=== PATIENT | male | born 1975 | race Caucasian/White ===

== ENCOUNTER 2020-06-04 11:05 | Outpatient (CLI) | payer MEDICARE, SELFPAY ==
[2020-06-04 12:01] LABS: Alanine Aminotransferase 33 U/L (4-50); Albumin Level 4.7 g/dL (3.5-5.1); Alkaline Phosphatase 62 U/L (38-126); Anion Gap 10 mmol/L (8-16); Aspartate Amino Transferase 30 U/L (17-59); Bilirubin,Total 1.2 mg/dL (0.2-1.3); Blood Urea Nitrogen 17 mg/dL (9-20); Calcium 9.9 mg/dL (8.4-10.2); Carbon Dioxide 25 mmol/L (22-30); Chloride 106 mmol/L (98-107); Estimated Glomerular Filt Rate > 60; Glucose 92 mg/dL (75-110); Potassium 4.5 mmol/L (3.4-5.0); Sodium 141 mmol/L (137-145)
[2020-06-04 12:15] LABS: Hemoglobin A1C 5.5 % (<5.7)
== END 2020-06-04 11:06 | disposition home or self-care (01) ==
PROVIDERS: PCP Emergency Medicine; Visit Provider Emergency Medicine
DX: E78.5 Hyperlipidemia, unspecified (principal); E11.9 Type 2 diabetes mellitus without complications
CPT/HCPCS: 36415; 80053; 83036

== ENCOUNTER 2021-01-07 07:51 | Outpatient (CLI) | payer MEDICARE, SELFPAY ==
[2021-01-07 08:41] LABS: Basophils Percent Auto 0.7 % (0.2-1.2); Eosinophils Absolute Auto 0.4 K/mm3 (0-0.3); Eosinophils Percent Auto 5.9 % (0-4.4); Hematocrit 49.6 % (42.0-52.0); Hemoglobin 14.9 g/dL (14.0-18.0); Immature Granulocyte Absolute 0.01 K/mm3 (0.00-0.031); Immature Granulocyte Percent A 0.2 % (0-0.5); Lymphocytes Absolute Auto 2.69 K/mm3 (0.9-3.2); Lymphocytes Percent Auto 45.4 % (18.3-44.2); Mean Corpuscular Hemoglobin 18.1 pg (26-34); Mean Corpuscular Volume 60.2 fl (80-100); Mean Platelet Volume 9.6 fl (7.4-10.4); Monocytes Absolute Auto 0.6 K/mm3 (0.1-0.6); Monocytes Percent Auto 9.8 % (2.6-8.5); Neutrophils Absolute Auto 2.3 K/mm3 (1.3-6.7); Platelet Count Result 273 k/mm3 (150-375); Red Blood Count 8.24 M/mm3 (4.6-6.20); Red Cell Distribution Width 19.4 % (11.5-14.5); White Blood Count 5.9 K/mm3 (4.5-10.0)
== END 2021-01-07 07:52 | disposition home or self-care (01) ==
PROVIDERS: PCP Emergency Medicine; Visit Provider Emergency Medicine
DX: R53.83 Other fatigue (principal)
CPT/HCPCS: 36415; 84443; 85025

== ENCOUNTER 2021-04-06 07:01 | Outpatient (CLI) | payer MEDICARE, SELFPAY ==
[2021-04-06 07:59] LABS: Alanine Aminotransferase 37 U/L (4-50); Albumin Level 4.6 g/dL (3.5-5.1); Alkaline Phosphatase 64 U/L (38-126); Anion Gap 8 mmol/L (8-16); Aspartate Amino Transferase 35 U/L (17-59); Bilirubin,Total 1.4 mg/dL (0.2-1.3); Blood Urea Nitrogen 14 mg/dL (9-20); Calcium 9.8 mg/dL (8.4-10.2); Carbon Dioxide 27 mmol/L (22-30); Chloride 104 mmol/L (98-107); Cholesterol 238 mg/dL (0-200); Estimated Glomerular Filt Rate > 60; Glucose 94 mg/dL (75-110); HDL Direct 66 mg/dL; Potassium 4.2 mmol/L (3.4-5.0); Sodium 139 mmol/L (137-145); Triglycerides 77 mg/dL (<150)
[2021-04-06 08:09] LABS: LDL Cholesterol Direct 127 mg/dL
== END 2021-04-06 07:02 | disposition home or self-care (01) ==
PROVIDERS: PCP Emergency Medicine; Visit Provider Emergency Medicine
DX: E78.5 Hyperlipidemia, unspecified (principal)
CPT/HCPCS: 36415; 80053; 80061

== ENCOUNTER 2021-08-24 15:56 | Outpatient (CLI) | payer MEDICARE, SELFPAY ==
[2021-08-24 17:08] LABS: Basophils Absolute Auto 0.1 K/mm3 (0.0-0.1); Basophils Percent Auto 0.7 % (0.2-1.2); Eosinophils Absolute Auto 0.2 K/mm3 (0-0.3); Eosinophils Percent Auto 2.9 % (0-4.4); Hematocrit 48.9 % (42.0-52.0); Hemoglobin 15.3 g/dL (14.0-18.0); Immature Granulocyte Absolute 0.01 K/mm3 (0.00-0.031); Immature Granulocyte Percent A 0.1 % (0-0.5); Lymphocytes Absolute Auto 2.59 K/mm3 (0.9-3.2); Lymphocytes Percent Auto 35.4 % (18.3-44.2); Mean Corpuscular HGB Conc 31.3 g/dl (32-36); Mean Corpuscular Hemoglobin 18.8 pg (26-34); Mean Corpuscular Volume 60.1 fl (80-100); Mean Platelet Volume 9.8 fl (7.4-10.4); Monocytes Absolute Auto 0.4 K/mm3 (0.1-0.6); Monocytes Percent Auto 5.9 % (2.6-8.5); Platelet Count Result 275 k/mm3 (150-375); Red Blood Count 8.13 M/mm3 (4.6-6.20); White Blood Count 7.3 K/mm3 (4.5-10.0)
[2021-08-24 17:14] LABS: Alanine Aminotransferase 28 U/L (4-50); Alkaline Phosphatase 78 U/L (38-126); Anion Gap 11 mmol/L (8-16); Aspartate Amino Transferase 26 U/L (17-59); Bilirubin,Total 1.2 mg/dL (0.2-1.3); Blood Urea Nitrogen 19 mg/dL (9-20); Calcium 10.1 mg/dL (8.4-10.2); Carbon Dioxide 23 mmol/L (22-30); Chloride 107 mmol/L (98-107); Estimated Glomerular Filt Rate > 60; Glucose 97 mg/dL (65-110); Potassium 4.1 mmol/L (3.4-5.0); Sodium 141 mmol/L (137-145)
== END 2021-08-24 15:57 | disposition home or self-care (01) ==
LOC: ANHLAB 15:58
PROVIDERS: PCP Emergency Medicine; Visit Provider Emergency Medicine
DX: R53.83 Other fatigue (principal); Z13.220 Encounter for screening for lipoid disorders
CPT/HCPCS: 36415; 80053; 83735; 84443; 85025

== ENCOUNTER 2021-08-26 11:20 | Outpatient (CLI) | payer MEDICARE, SELFPAY ==
[2021-08-26 12:24] LABS: Iron 196 ug/dL (49-181)
[2021-08-26 12:34] LABS: Percent Iron Saturation 51 % (20-50)
[2021-08-30 12:53] LABS: Red Blood Cell Folate 608 ng/mL RBC (>280)
== END 2021-08-26 11:21 | disposition home or self-care (01) ==
PROVIDERS: PCP Emergency Medicine; Visit Provider Emergency Medicine
DX: R42 Dizziness and giddiness (principal); R53.83 Other fatigue; Z13.220 Encounter for screening for lipoid disorders; Z13.6 Encounter for screening for cardiovascular disorders; R56.9 Unspecified convulsions; R03.0 Elevated blood-pressure reading, without diagnosis of hypertension; Z86.2 Personal history of diseases of the blood and blood-forming organs and certain disorders involving the immune mechanism
CPT/HCPCS: 36415; 82607; 82747; 83540; 83550

== ENCOUNTER 2021-12-26 07:17 | Outpatient (CLI) | payer MEDICARE, SELFPAY ==
[2021-12-26 08:05] LABS: Alanine Aminotransferase 33 U/L (4-50); Albumin Level 4.5 g/dL (3.5-5.1); Alkaline Phosphatase 63 U/L (38-126); Anion Gap 7 mmol/L (8-16); Aspartate Amino Transferase 35 U/L (17-59); Bilirubin,Total 1.2 mg/dL (0.2-1.3); Blood Urea Nitrogen 13 mg/dL (9-20); Calcium 9.2 mg/dL (8.4-10.2); Carbon Dioxide 27 mmol/L (22-30); Chloride 104 mmol/L (98-107); Cholesterol 212 mg/dL (0-200); Estimated Glomerular Filt Rate > 60; Glucose 96 mg/dL (65-110); HDL Direct 52 mg/dL; Potassium 4.1 mmol/L (3.4-5.0); Sodium 138 mmol/L (137-145); Triglycerides 98 mg/dL (<150)
[2021-12-26 08:16] LABS: LDL Cholesterol Direct 127 mg/dL
== END 2021-12-26 07:18 | disposition home or self-care (01) ==
PROVIDERS: PCP Emergency Medicine; Visit Provider Emergency Medicine
DX: Z13.220 Encounter for screening for lipoid disorders (principal); Z13.6 Encounter for screening for cardiovascular disorders
CPT/HCPCS: 36415; 80053; 80061

== ENCOUNTER 2022-01-04 15:55 | Outpatient (CLI) | payer MEDICARE, SELFPAY ==
[2022-01-04 16:20] LABS: Basophils Absolute Auto 0.1 K/mm3 (0.0-0.1); Basophils Percent Auto 0.8 % (0.2-1.2); Eosinophils Absolute Auto 0.4 K/mm3 (0-0.3); Eosinophils Percent Auto 4.5 % (0-4.4); Hemoglobin 15.1 g/dL (14.0-18.0); Immature Granulocyte Absolute 0.02 K/mm3 (0.00-0.031); Immature Granulocyte Percent A 0.2 % (0-0.5); Lymphocytes Absolute Auto 3.11 K/mm3 (0.9-3.2); Lymphocytes Percent Auto 35.8 % (18.3-44.2); Mean Corpuscular HGB Conc 30.2 g/dl (32-36); Mean Corpuscular Hemoglobin 18.7 pg (26-34); Mean Platelet Volume 9.2 fl (7.4-10.4); Monocytes Absolute Auto 0.6 K/mm3 (0.1-0.6); Monocytes Percent Auto 6.6 % (2.6-8.5); Neutrophils Absolute Auto 4.5 K/mm3 (1.3-6.7); Neutrophils Percent Auto 52.1 % (45.5-73.1); Platelet Count Result 283 k/mm3 (150-375); Red Blood Count 8.07 M/mm3 (4.6-6.20); Red Cell Distribution Width 20.2 % (11.5-14.5); White Blood Count 8.7 K/mm3 (4.5-10.0)
--- NOTE | 2022-01-04 16:20 | ECG_ITS ---
Measurements Intervals [place] Rate: 104 P: 38 WA: 154 QRS: 35 QRSD: 85 T: 23 QT: 327 QTc: 431 Interpretive Statements SINUS TACHYCARDIA BORDERLINE ECG NO PREVIOUS ECG AVAILABLE FOR COMPARISON Electronically Signed On 01-05-2022 15:30:19 CDT by Refugio Castro M.D.
== END 2022-01-04 15:56 | disposition home or self-care (01) ==
PROVIDERS: PCP Emergency Medicine; Visit Provider Emergency Medicine
DX: R00.0 Tachycardia, unspecified (principal); R53.83 Other fatigue; Z86.2 Personal history of diseases of the blood and blood-forming organs and certain disorders involving the immune mechanism
CPT/HCPCS: 36415; 84443; 85025; 93005

== ENCOUNTER 2022-01-06 14:25 | Outpatient (CLI) | payer MEDICARE, SELFPAY ==
[2022-01-06 15:18] LABS: Iron 136 ug/dL (49-181)
[2022-01-06 15:28] LABS: Percent Iron Saturation 34 % (20-50)
== END 2022-01-06 14:26 | disposition home or self-care (01) ==
LOC: ANHLAB 14:29
PROVIDERS: PCP Emergency Medicine; Visit Provider Emergency Medicine
DX: R53.83 Other fatigue (principal); Z86.2 Personal history of diseases of the blood and blood-forming organs and certain disorders involving the immune mechanism
CPT/HCPCS: 36415; 83540; 83550

== ENCOUNTER 2022-03-09 12:28 | Emergency (ER) | payer MEDICARE, SELFPAY ==
[2022-03-09] VITALS (12 sets, daily range): BP systolic 143–162; BP diastolic 98–110; PULSE 92–114; RESP 16–24; TEMP 36.3; O2SAT 92–97
--- NOTE | ~2022-03-09 | XR_ITS ---
EXAMINATION: XR chest 2V 03/09/2022 12:57 INDICATION: Chest pain PROCEDURE: 2 view chest COMPARISON: 11/19/2017 FINDINGS: The lungs are clear. The cardiomediastinal silhouette is within normal limits. There are no pleural effusions. There is no pneumothorax suspected. IMPRESSION: 1: NO ACUTE CARDIOPULMONARY DISEASE. Reviewed, dictated and finalized at location A.
--- NOTE | 2022-03-09 12:29 | ECG_ITS ---
Measurements Intervals [place] Rate: 114 P: 29 NC: 154 QRS: 37 QRSD: 81 T: 33 QT: 314 QTc: 434 Interpretive Statements SINUS TACHYCARDIA NONSPECIFIC T-WAVE ABNORMALITY BORDERLINE ECG COMPARED TO ECG 01/04/2022 16:29:20 T-WAVE ABNORMALITY NOW PRESENT Electronically Signed On 03-09-2022 17:54:05 CDT by Refugio Castro M.D.
[2022-03-09 13:09] LABS: Basophils Percent Auto 0.5 % (0.2-1.2); Eosinophils Percent Auto 0.2 % (0-4.4); Hematocrit 49.5 % (42.0-52.0); Hemoglobin 15.1 g/dL (14.0-18.0); Immature Granulocyte Absolute 0.03 K/mm3 (0.00-0.031); Immature Granulocyte Percent A 0.3 % (0-0.5); Lymphocytes Absolute Auto 1.74 K/mm3 (0.9-3.2); Mean Corpuscular HGB Conc 30.5 g/dl (32-36); Mean Corpuscular Hemoglobin 18.7 pg (26-34); Mean Corpuscular Volume 61.3 fl (80-100); Mean Platelet Volume 9.5 fl (7.4-10.4); Monocytes Absolute Auto 0.4 K/mm3 (0.1-0.6); Monocytes Percent Auto 4.1 % (2.6-8.5); Neutrophils Absolute Auto 6.5 K/mm3 (1.3-6.7); Neutrophils Percent Auto 74.9 % (45.5-73.1); Platelet Count Result 287 k/mm3 (150-375); Red Blood Count 8.08 M/mm3 (4.6-6.20); Red Cell Distribution Width 20.5 % (11.5-14.5); White Blood Count 8.7 K/mm3 (4.5-10.0)
--- NOTE | 2022-03-09 13:10 | PC.NURSE ---
called into patient's room by mother stating that patient was feeling sick and dizzy. upon entering room, patient was feeling better. cool wash cloth placed on forehead. patient reported that he started to feel sick yesterday but did not vomit. assessed patient's vital signs and call light within reach. will continue to monitor
[2022-03-09 13:24] LABS: Alanine Aminotransferase 56 U/L (6-50); Albumin Level 5.2 g/dL (3.5-5.1); Alkaline Phosphatase 79 U/L (38-126); Anion Gap 10 mmol/L (8-16); Aspartate Amino Transferase 45 U/L (17-59); Bilirubin,Total 1.6 mg/dL (0.2-1.3); Blood Urea Nitrogen 15 mg/dL (9-20); Calcium 9.6 mg/dL (8.4-10.2); Carbon Dioxide 22 mmol/L (22-30); Chloride 108 mmol/L (98-107); Estimated CRCL calculation 87 ml/min; Estimated Glomerular Filt Rate > 60; Glucose 102 mg/dL (65-110); INR 1.1; Lipase 162 U/L (23-300); Partial Thromboplastin Time 31.7 SECONDS (22.3-36.8); Potassium 4.3 mmol/L (3.4-5.0); Prothrombin Time 13.4 Seconds (11.1-14.7); Sodium 140 mmol/L (137-145)
[2022-03-09 13:35] LABS: Troponin I < 0.012 ng/mL (0.000-0.034)
--- NOTE | 2022-03-09 14:05 | ED.CHESTPAIN ---
HPI - Chest Pain General Chief Complaint: Chest Pain Stated Complaint: CHEST PAIN Time Seen by Provider: 03/09/22 13:55 History of Present Illness HPI narrative: Pt was waiting do go to work and felt lightheaded and apparently passed out. Pt said he had some CP not sure if before or after that lasted around an hour. Pt says this happened around 1100. Pt rode his bike home afterward and had no symptoms and then went shopping with his friends and had no symptoms. Related Data Home Medications Medication Instructions Recorded Confirmed ibuprofen 800 mg tablet 800 mg PO TID 06/02/20 09/15/21 loratadine 10 mg tablet (Claritin) 10 mg PO DAILY 03/09/22 Allergies Allergy/AdvReac Type Severity Reaction Status Date / Time No Known Allergies Allergy Verified 03/09/22 12:50 Review of Systems Review of Systems: All systems reviewed & are unremarkable except as noted in HPI and below PMFSH Past Medical History Medical History (Updated 03/09/22 @ 16:42 by Danie Poole III, DO) Pre-syncope Family History Family History Other Family history of arthritis Social History Social History Smoking status: Never smoker Alcohol intake: never Exam Const: General: healthy appearing, no acute distress and alert Eyes: Conjunctivae: conjunctivae normal EOM: EOMs intact bilaterally Neck: Neck: normal visual inspection Chest: Chest palpation & inspection: normal inspection of the chest Resp: Effort & Inspection: normal respiratory effort Auscultation: clear to auscultation bilaterally Cardio: Rate: regular rate Rhythm: regular rhythm : General: Yes bladder normal to palpation Back/Spine/Pelvis: Back: no CVA tenderness Skin: General skin exam: normal color Neuro: General: patient oriented x3, moves all extremities, no meningeal signs and no focal motor deficits Cranial nerves: Yes Nystagmus not present Speech: normal speech Gait exam (Neuro): Normal gait present Extrem: General: normal to inspection and no clubbing, cyanosis or edema Psych: Mental Status: mental status grossly normal Affect: normal affect Attitude: cooperative Course Vital Signs Vital signs: Vital Signs Pulse Rate 114 H 03/09/22 12:34 Respiratory Rate 20 03/09/22 12:34 Oxygen Delivery Room Air 03/09/22 12:34 Temperature 97.3 F L 03/09/22 16:47 Pulse Rate 92 03/09/22 16:47 Respiratory Rate 16 03/09/22 16:47 Blood Pressure 145/98 H 03/09/22 16:47 Pulse Oximetry 97 03/09/22 16:47 Oxygen Delivery Room Air 03/09/22 12:34 MDM - Chest Pain Lab Data Result diagrams: 03/09/22 12:52 03/09/22 12:52 Labs: Lab Results 03/09/22 03/09/22 03/09/22 Range/Units 12:52 12:52 12:52 WBC 8.7 (4.5-10.0) K/mm3 RBC 8.08 H (4.6-6.20) M/mm3 Hgb 15.1 (14.0-18.0) g/dL Hct 49.5 (42.0-52.0) % MCV 61.3 L (80-100) fl MCH 18.7 L (26-34) pg MCHC 30.5 L (32-36) g/dl RDW 20.5 H (11.5-14.5) % Plt Count 287 (150-375) k/mm3 MPV 9.5 (7.4-10.4) fl Immature Gran % (Auto) 0.3 (0-0.5) % Neut % (Auto) 74.9 H (45.5-73.1) % Lymph % (Auto) 20.0 (18.3-44.2) % [place] % (Auto) 4.1 (2.6-8.5) % Eos % (Auto) 0.2 (0-4.4) % Baso % (Auto) 0.5 (0.2-1.2) % Lymph # (Auto) 1.74 (0.9-3.2) K/mm3 [place] # (Auto) 0.4 (0.1-0.6) K/mm3 Eos # (Auto) 0.0 (0-0.3) K/mm3 Baso # (Auto) 0.0 (0.0-0.1) K/mm3 Abs Immat Gran (auto) 0.03 (0.00-0.031) K/mm3 Absolute Neuts (auto) 6.5 (1.3-6.7) K/mm3 Absolute Nucleated RBC 0.0 (0.0-0.012) K/mm3 Nucleated RBC % 0.0 (0.0-0.2) % PT 13.4 (11.1-14.7) Seconds INR 1.1 APTT 31.7 (22.3-36.8) SECONDS Sodium 140 (137-145) mmol/L Potassium 4.3 (3.4-5.0) mmol/L Chloride 108 H (98-107) mmol/L Carbon Dioxide 22 (22-30) mmol/L
[2022-03-09 15:59] LABS: Troponin I < 0.012 ng/mL (0.000-0.034)
== END 2022-03-09 16:49 | disposition home or self-care (01) ==
PROVIDERS: Emergency Provider Emergency Medicine; PCP Emergency Medicine
DX: R55 Syncope and collapse (principal); R07.89 Other chest pain; R00.0 Tachycardia, unspecified; R94.31 Abnormal electrocardiogram [ECG] [EKG]
CPT/HCPCS: 36415; 71046; 80053; 83690; 84484; 85025; 85610; 85730; 93005; 99284

== ENCOUNTER 2023-07-03 09:21 | Outpatient (CLI) | payer MEDICARE, SELFPAY ==
[2023-07-03 09:55] LABS: Alanine Aminotransferase 66 U/L (6-50); Albumin Level 4.7 g/dL (3.5-5.1); Alkaline Phosphatase 57 U/L (38-126); Anion Gap 11 mmol/L (8-16); Aspartate Amino Transferase 51 U/L (17-59); Bilirubin,Total 1.5 mg/dL (0.2-1.3); Blood Urea Nitrogen 14 mg/dL (9-20); Calcium 9.1 mg/dL (8.4-10.2); Carbon Dioxide 22 mmol/L (22-30); Chloride 105 mmol/L (98-107); Estimated Glomerular Filt Rate > 60; Glucose 83 mg/dL (65-110); Potassium 4.1 mmol/L (3.4-5.0); Sodium 138 mmol/L (137-145)
== END 2023-07-03 09:22 | disposition home or self-care (01) ==
PROVIDERS: PCP Emergency Medicine; Visit Provider Emergency Medicine
DX: R53.83 Other fatigue (principal); E78.5 Hyperlipidemia, unspecified
CPT/HCPCS: 36415; 80053

== ENCOUNTER 2023-07-13 10:37 | Outpatient (CLI) | payer MEDICARE, SELFPAY ==
--- NOTE | 2023-07-13 10:44 | ECG_ITS ---
Measurements Intervals [place] Rate: 94 P: 28 MS: 153 QRS: 28 QRSD: 91 T: 29 QT: 332 QTc: 417 Interpretive Statements SINUS RHYTHM COMPARED TO ECG 03/09/2022 12:33:53 SINUS RHYTHM NOW PRESENT Electronically Signed On 07-13-2023 14:29:56 CDT by Angeles Smart M.D.
== END 2023-07-13 10:38 | disposition home or self-care (01) ==
LOC: ANHLAB 10:39 → ANHCARD 10:39
PROVIDERS: PCP Emergency Medicine; Visit Provider Emergency Medicine
DX: R06.09 Other forms of dyspnea (principal); R07.89 Other chest pain
CPT/HCPCS: 93005

== ENCOUNTER 2023-08-15 08:00 | Outpatient (CLI) | payer MEDICARE, SELFPAY ==
--- NOTE | ~2023-08-15 | NM_ITS ---
EXAMINATION: NM maxime stress w perfusion DATE: 08/15/2023 11:40 INDICATION: Other forms of dyspnea TECHNIQUE: Rest images were obtained following intravenous administration of 10.9 mCi Tc99m tetrofosm in (Myoview). The patient was infused intravenously with Lexiscan (Regadenoson). Then, 32 mCi Tc99m t etrofosmin (Myoview) was administered intravenously, and stress images were obtained. Data was recons tructed into short axis and horizontal and vertical long axis SPECT images. Gated SPECT images were a lso obtained. COMPARISON: None. FINDINGS: There is no definite reversible or fixed perfusion abnormality to suggest ischemia or infar ction. There is normal left ventricular chamber size, wall motion and ejection fraction. Left ventr icular ejection fraction measures >70%. IMPRESSION: 1. Normal myocardial perfusion at rest and during stress. 2. Left ventricular ejection fraction measuring >70%. Reviewed, dictated and finalized at location A. ECT PLANNER
--- NOTE | 2023-08-15 08:47 | EST_ITS ---
Patient Info Name: Brendan Saenz Age: 47 years : 1975 Gender: Male Ht: 71 in Wt: 220 lbs BSA: 2.26 m2 HR: 81 bpm BP: 113 / 89 mmHg Heart Rhythm: Sinus Rhythm Exam Date: 08/15/2023 10:40 AM Exam Location: Echo Lab Patient Status: Outpatient Admit Date: 08/15/2023 Staff Ordering Physician: Salinas Jackson MD Attending Provider: Salinas Jackson MD Exercise Technologist: Abbie Gabriel CT Exercise Physician: Jeff Randall DO Exam Type: CA stress maxime w NM Study Info Indications R06.09 - Other forms of dyspnea A regadenoson stress test was performed. Summary 1. 1. Negative lexiscan stress test for ischemic ST changes by ECG criteria. 2. 2. Stable hemodynamics throughout the test. 3. 3. Nuclear scan to follow and will be reported separately. Please correlate with it. 4. 4. Patient informed of the above results. Protocol: Lexiscan Stress ECG Details Stage: REST Duration (min): 1 min : 23 sec HR (bpm): 90 SBP (mmHg): 113 DBP (mmHg): 89 Stage: REST Duration (min): 9 min : 42 sec HR (bpm): 82 SBP (mmHg): 113 DBP (mmHg): 89 Stage: STAGE 1 Duration (min): 1 min : 0 sec HR (bpm): 108 SBP (mmHg): 115 DBP (mmHg): 91 Stage: RECOVERY Duration (min): 1 min : 0 sec HR (bpm): 118 SBP (mmHg): 115 DBP (mmHg): 91 Stage: RECOVERY Duration (min): 2 min : 0 sec HR (bpm): 115 SBP (mmHg): 115 DBP (mmHg): 91 Stage: RECOVERY Duration (min): 3 min : 0 sec HR (bpm): 112 SBP (mmHg): 136 DBP (mmHg): 97 Stage: RECOVERY Duration (min): 3 min : 0 sec HR (bpm): 112 SBP (mmHg): 136 DBP (mmHg): 97 Rest HR: 82 bpm Peak HR: 120 bpm Rest Sys BP: 113 mmHg Peak Sys BP: 136 mmHg Max Pred HR: 174 bpm % Max Pred HR: 69 % Target HR: 148 bpm Max RPP: 16,320 bpm*mmHg Termination Reason: Completed protocol Cardiac Symptoms: Shortness of breath Total Time: 1 min : 0 sec Rest Laurent BP: 89 mmHg Peak Laurent BP: 97 mmHg Total Dose: 0.4 mg Resting ECG Sinus rhythm. Stress ECG No ST changes. Arrhythmias None. Report Signatures
== END 2023-08-15 08:01 | disposition home or self-care (01) ==
LOC: ANHCARD 08:02
PROVIDERS: PCP Emergency Medicine; Visit Provider Emergency Medicine
DX: R06.09 Other forms of dyspnea (principal)
CPT/HCPCS: 78452; 93017; A9502; J2785

== ENCOUNTER 2023-11-07 07:28 | Outpatient (CLI) | payer MEDICARE, SELFPAY ==
[2023-11-07 08:37] LABS: Alanine Aminotransferase 66 U/L (6-50); Albumin Level 4.4 g/dL (3.5-5.1); Alkaline Phosphatase 69 U/L (38-126); Anion Gap 11 mmol/L (8-16); Aspartate Amino Transferase 43 U/L (17-59); Bilirubin,Total 1.4 mg/dL (0.2-1.3); Blood Urea Nitrogen 14 mg/dL (9-20); Calcium 9.9 mg/dL (8.4-10.2); Carbon Dioxide 23 mmol/L (22-30); Chloride 107 mmol/L (98-107); Estimated Glomerular Filt Rate > 60; Glucose 94 mg/dL (65-110); Potassium 4.1 mmol/L (3.4-5.0); Sodium 141 mmol/L (137-145)
== END 2023-11-07 07:29 | disposition home or self-care (01) ==
PROVIDERS: PCP Emergency Medicine; Visit Provider Emergency Medicine
DX: E55.9 Vitamin D deficiency, unspecified (principal); R53.83 Other fatigue
CPT/HCPCS: 36415; 80053; 82306

== ENCOUNTER 2023-11-27 09:56 | Outpatient (CLI) | payer MEDICARE, SELFPAY ==
--- NOTE | ~2023-11-27 | US_ITS ---
Limited Abdominal Sonogram: Real-time sonographic imaging of the right upper quadrant was performed. Clinical History: Abdominal pain Findings: The liver appears echogenic, with no evidence of mass lesion or bile duct dilatation. Main portal vein demonstrates normal direction of flow. The gallbladder is well distended, and contains g allstones in the gallbladder neck. No gallbladder wall thickening. The common bile duct measures 4 mm . The visualized pancreas, aorta, and IVC are unremarkable. Impression: Cholelithiasis. Diffuse fatty infiltration of liver. Reviewed, dictated and finalized at location M. NAVIGATOR Impression: Cholelithiasis. Diffuse fatty infiltration of liver.
== END 2023-11-27 09:57 | disposition home or self-care (01) ==
PROVIDERS: PCP Emergency Medicine; Visit Provider Emergency Medicine
DX: K80.20 Calculus of gallbladder without cholecystitis without obstruction (principal); K76.0 Fatty (change of) liver, not elsewhere classified
CPT/HCPCS: 76705

== ENCOUNTER 2024-03-12 08:45 | Outpatient (CLI) | payer MEDICARE, SELFPAY ==
[2024-03-12 10:30] LABS: Alanine Aminotransferase 57 U/L (6-50); Albumin Level 5.3 g/dL (3.5-5.1); Alkaline Phosphatase 74 U/L (38-126); Anion Gap 13 mmol/L (4-12); Aspartate Amino Transferase 40 U/L (17-59); Bilirubin,Total 1.4 mg/dL (0.2-1.3); Blood Urea Nitrogen 15 mg/dL (9-20); Carbon Dioxide 23 mmol/L (22-30); Chloride 105 mmol/L (98-107); Cholesterol 237 mg/dL (0-200); Estimated Glomerular Filt Rate > 60; Glucose 86 mg/dL (65-110); HDL Direct 52 mg/dL; Potassium 4.2 mmol/L (3.4-5.0); Sodium 141 mmol/L (137-145); Triglycerides 141 mg/dL (<150)
[2024-03-12 10:41] LABS: LDL Cholesterol Direct 150 mg/dL
[2024-03-12 10:50] LABS: Vitamin D 25 Hydroxy 45.1 ng/mL
== END 2024-03-12 08:46 | disposition home or self-care (01) ==
PROVIDERS: PCP Emergency Medicine; Visit Provider Emergency Medicine
DX: E78.5 Hyperlipidemia, unspecified (principal); E55.9 Vitamin D deficiency, unspecified
CPT/HCPCS: 36415; 80053; 80061; 82306

== ENCOUNTER 2024-09-10 09:03 | Outpatient (CLI) | payer MEDICARE, SELFPAY ==
[2024-09-10 10:06] LABS: Alanine Aminotransferase 67 U/L (6-50); Albumin Level 4.9 g/dL (3.5-5.1); Alkaline Phosphatase 75 U/L (38-126); Anion Gap 9 mmol/L (4-12); Aspartate Amino Transferase 38 U/L (17-59); Bilirubin,Total 1.5 mg/dL (0.2-1.3); Blood Urea Nitrogen 14 mg/dL (9-20); Calcium 9.6 mg/dL (8.4-10.2); Carbon Dioxide 27 mmol/L (22-30); Chloride 106 mmol/L (98-107); Cholesterol 155 mg/dL (0-200); Estimated Glomerular Filt Rate > 60; Glucose 90 mg/dL (65-110); HDL Direct 50 mg/dL; Potassium 4.1 mmol/L (3.4-5.0); Sodium 142 mmol/L (137-145); Triglycerides 122 mg/dL (<150)
[2024-09-10 10:17] LABS: LDL Cholesterol Direct 80 mg/dL
[2024-09-10 10:37] LABS: Prostate Specific Antigen 0.7 ng/mL (< OR = 4.0)
[2024-09-10 10:43] LABS: Vitamin D 25 Hydroxy 45.4 ng/mL
== END 2024-09-10 09:04 | disposition home or self-care (01) ==
LOC: ANHLAB 09:06
PROVIDERS: PCP Emergency Medicine; Visit Provider Emergency Medicine
DX: E55.9 Vitamin D deficiency, unspecified (principal); E78.5 Hyperlipidemia, unspecified; Z12.5 Encounter for screening for malignant neoplasm of prostate
CPT/HCPCS: 36415; 80053; 80061; 82306; 84153; G0103

== ENCOUNTER 2025-03-09 08:30 | Outpatient (CLI) | payer MEDICARE, SELFPAY ==
--- OUTSIDE RECORDS SUMMARY | 2025-03-09 08:44 | XMS_ITS | Clinical Summary ---
Author Organization [facility] [place] [address] Address [address] [place] [address] Care Team Providers Care Meat Apprentice Name Role Phone Salinas Jackson MD Primary Care Provide r Allergies No known active allergies Medications loratadine-pseu doephedrine (CLARITIN-D 24-hour) 10-240 mg per 24 hr tablet Take 1 tablet by mouth daily Active loratadine (Claritin) 10 mg tablet Take 1 tablet (10 mg total) by mouth daily Active losartan (COZAAR) 50 mg tablet Take 1 tablet (50 mg total) by mouth daily 08/04/2024 Active rosuvastatin (CRESTOR) 10 mg tablet Take 1 tablet (10 mg total) by mouth daily 08/31/2024 Active famotidine (Pepcid) 20 mg tablet Take 1 tablet (20 mg total) by mouth 2 (two) times a day Active acetaminophen (TYLENOL ORAL) Take by mouth Active levETIRAcetam (KEPPRA) 500 mg tabletIndicatio ns:Seizures (HCC) Take 1.5 tablets (750 mg total) by mouth 2 (two) times a day 270 tablet 3 10/22/2024 Active Active Problems Problem Noted Date Diagnosed Date Seizures 12/01/2021 Surgical History Surgery Date Site/Laterality Comments JOSEPHINE HOLE FOR SUBDURAL HEMATOMA FOOT CAPSULE RELEASE W/ PERC UTANEOUS HEEL CORD LENGTHENING, TIBIAL TENDON TRANSFER Medical History Medical History Date Comments TBI (traumatic brain injury) (HCC) Subdural hematoma (HCC) Leg length discrepancy 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 Not on file Not on dago e Obstetrics History Last Filed Vital Signs Vital Sign Reading Time Taken Comments Blood Pressure 118/87 10/22/2024 2:12 PM ENTRY LEVEL MARKETING REPRESENTATIVE Pulse 103 10/22/2024 2:12 PM ENTRY LEVEL MARKETING REPRESENTATIVE Temperature 36.8 C (98.2 F) 10/22/2024 2:12 PM ENTRY LEVEL MARKETING REPRESENTATIVE Respiratory Rate - - Oxygen Saturation 97% 10/22/2024 2:12 PM ENTRY LEVEL MARKETING REPRESENTATIVE Inhaled Oxygen Concentration - - Weight 109.5 kg (241 lb 8 oz) 10/22/2024 2:12 PM ENTRY LEVEL MARKETING REPRESENTATIVE Height 180.3 cm (5' 11) 10/22/2024 2:12 PM ENTRY LEVEL MARKETING REPRESENTATIVE Body Mass Index 33.68 10/22/2024 2:12 PM ENTRY LEVEL MARKETING REPRESENTATIVE Plan of Treatment Health Maintenance Due Date Last Done Comments Colon Cancer Screening-Colonoscopy 1975 Depression Screening 1975 Hepatitis C Screening 1975 DTaP/Tdap/Td Vaccine (1 - Tdap) 1987 Hepatitis B Screening 1994 Regular Well Visit/Exam 18-64 1994 Covid-19 Vaccine (3 - 2023-2 5 season) 2024 12/24/2020, 12/03/2020 Influenza Vaccine (Season Ended) 2025 06/30/2017, 07/04/2016, 07/16/2015 Pneumococcal vaccine <65 Aged Out No longer eligible based on patient's age to complete this topic Insurance [facility] [place] MEDICARE PPO [employer] CHOICE MEDICARE PPO [employer] MEDICARE HMO Care Teams Meat Apprentice Relationship Specialty Start Date End Date Salinas Jackson MD [address] [place] [address] PCP - General Emergency Medicine 10/08/17
--- OUTSIDE RECORDS SUMMARY | 2025-03-09 08:44 | XMS_ITS | Referral Summary ---
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 Not on file Not on dago e Last Filed Vital Signs Vital Sign Reading Time Taken Comments Blood Pressure 118/87 10/22/2024 2:12 PM SEED MILL SUPERINTENDENT Pulse 103 10/22/2024 2:12 PM SEED MILL SUPERINTENDENT Temperature 36.8 C (98.2 F) 10/22/2024 2:12 PM SEED MILL SUPERINTENDENT Respiratory Rate - - Oxygen Saturation 97% 10/22/2024 2:12 PM SEED MILL SUPERINTENDENT Inhaled Oxygen Concentration - - Weight 109.5 kg (241 lb 8 oz) 10/22/2024 2:12 PM SEED MILL SUPERINTENDENT Height 180.3 cm (5' 11) 10/22/2024 2:12 PM SEED MILL SUPERINTENDENT Body Mass Index 33.68 10/22/2024 2:12 PM SEED MILL SUPERINTENDENT Plan of Treatment Not on file Insurance [employer] MEDICARE PPO [employer] MEDICARE PPO [employer] MEDICARE HMO Care Teams Spanish Linguist Relationship Specialty Start Date End Date Salinas Jackson MD [address] [place] [address] PCP - General Emergency Medicine 10/08/17
[2025-03-09 09:40] LABS: Vitamin D 25 Hydroxy 38.4 ng/mL
== END 2025-03-09 08:31 | disposition home or self-care (01) ==
LOC: ANHLAB 08:33
PROVIDERS: PCP Emergency Medicine; Visit Provider Emergency Medicine
DX: E55.9 Vitamin D deficiency, unspecified (principal); E78.5 Hyperlipidemia, unspecified
CPT/HCPCS: 36415; 82306

== ENCOUNTER 2025-03-10 08:14 | Outpatient (CLI) | payer MEDICARE, SELFPAY ==
--- OUTSIDE RECORDS SUMMARY | 2025-03-10 08:24 | XMS_ITS | Referral Summary ---
Author Organization 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 Not on file Not on dago e Last Filed Vital Signs Vital Sign Reading Time Taken Comments Blood Pressure 118/87 10/22/2024 2:12 PM MARKET REPORTER Pulse 103 10/22/2024 2:12 PM MARKET REPORTER Temperature 36.8 C (98.2 F) 10/22/2024 2:12 PM MARKET REPORTER Respiratory Rate - - Oxygen Saturation 97% 10/22/2024 2:12 PM MARKET REPORTER Inhaled Oxygen Concentration - - Weight 109.5 kg (241 lb 8 oz) 10/22/2024 2:12 PM MARKET REPORTER Height 180.3 cm (5' 11) 10/22/2024 2:12 PM MARKET REPORTER Body Mass Index 33.68 10/22/2024 2:12 PM MARKET REPORTER Plan of Treatment Not on file Insurance [employer] MEDICARE PPO [employer] MEDICARE PPO [employer] MEDICARE HMO Care Teams Nursing Informatics Analyst Relationship Specialty Start Date End Date Salnias Jackson MD [address] [place] [address] PCP - General Emergency Medicine 10/08/17
--- OUTSIDE RECORDS SUMMARY | 2025-03-10 08:24 | XMS_ITS | Clinical Summary ---
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 Not on file Not on dago e Obstetrics History Last Filed Vital Signs Vital Sign Reading Time Taken Comments Blood Pressure 118/87 10/22/2024 2:12 PM ENGINEERING TECHNICAL SPECIALIST Pulse 103 10/22/2024 2:12 PM ENGINEERING TECHNICAL SPECIALIST Temperature 36.8 C (98.2 F) 10/22/2024 2:12 PM ENGINEERING TECHNICAL SPECIALIST Respiratory Rate - - Oxygen Saturation 97% 10/22/2024 2:12 PM ENGINEERING TECHNICAL SPECIALIST Inhaled Oxygen Concentration - - Weight 109.5 kg (241 lb 8 oz) 10/22/2024 2:12 PM ENGINEERING TECHNICAL SPECIALIST Height 180.3 cm (5' 11) 10/22/2024 2:12 PM ENGINEERING TECHNICAL SPECIALIST Body Mass Index 33.68 10/22/2024 2:12 PM ENGINEERING TECHNICAL SPECIALIST Plan of Treatment Health Maintenance Due Date [...] patient's age to complete this topic Insurance [facility] [employer] MEDICARE PPO [employer] CHOICE MEDICARE PPO [employer] MEDICARE HMO Care Teams Dehydrator Operator Relationship Specialty Start Date End Date Salinas Jackson MD [address] [place] [address] PCP - General Emergency Medicine 10/08/17
[2025-03-10 11:03] LABS: Alanine Aminotransferase 40 U/L (6-50); Albumin Level 4.7 g/dL (3.5-5.1); Alkaline Phosphatase 78 U/L (38-126); Anion Gap 12 mmol/L (4-12); Aspartate Amino Transferase 32 U/L (17-59); Bilirubin,Total 1.3 mg/dL (0.2-1.3); Blood Urea Nitrogen 16 mg/dL (9-20); Calcium 9.6 mg/dL (8.4-10.2); Carbon Dioxide 22 mmol/L (22-30); Chloride 106 mmol/L (98-107); Cholesterol 138 mg/dL (0-200); Estimated Glomerular Filt Rate > 60; Glucose 88 mg/dL (65-110); HDL Direct 43 mg/dL; Sodium 140 mmol/L (137-145); Total Protein 7.7 g/dL (6.3-8.2); Triglycerides 113 mg/dL (<150)
[2025-03-10 11:14] LABS: LDL Cholesterol Direct 65 mg/dL
== END 2025-03-10 08:15 | disposition home or self-care (01) ==
LOC: ANHLAB 08:19
PROVIDERS: PCP Emergency Medicine; Visit Provider Emergency Medicine
DX: E78.5 Hyperlipidemia, unspecified (principal)
CPT/HCPCS: 36415; 80053; 80061

== ENCOUNTER 2025-09-09 08:16 | Outpatient (CLI) | payer MEDICARE, SELFPAY ==
--- OUTSIDE RECORDS SUMMARY | 2025-09-09 08:28 | XMS_ITS | Clinical Summary ---
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 on file Not on dago e Last Filed Vital Signs Vital Sign Reading Time Taken Comments Blood Pressure 118/87 10/22/2024 2:12 PM TRANSFER MACHINE OPERATOR Pulse 103 10/22/2024 2:12 PM TRANSFER MACHINE OPERATOR Temperature 36.8 C (98.2 F) 10/22/2024 2:12 PM TRANSFER MACHINE OPERATOR Respiratory Rate - - Oxygen Saturation 97% 10/22/2024 2:12 PM TRANSFER MACHINE OPERATOR Inhaled Oxygen Concentration - - Weight 109.5 kg (241 lb 8 oz) 10/22/2024 2:12 PM TRANSFER MACHINE OPERATOR Height 180.3 cm (5' 11) 10/22/2024 2:12 PM TRANSFER MACHINE OPERATOR Body Mass Index 33.68 10/22/2024 2:12 PM TRANSFER MACHINE OPERATOR Plan of Treatment Health Maintenance Due Date Last Done Comments Colon Cancer Screening-Colonoscopy 1975 Depression Screening 1975 Hepatitis C Screening 1975 DTaP/Tdap/Td Vaccine (1 - Tdap) 1987 Hepatitis B Screening 1994 Regular Well Visit/Exam 18-64 1994 Covid-19 Vaccine (3 - 2024-2 6 season) 2025 12/24/2020, 12/03/2020 Influenza Vaccine (#1) 2025 7, 07/04/2016, 07/16/2015 Pneumococcal vaccine <65 Aged Out No longer eligible based on patient's age to complete this topic Insurance [facility] CHOICE MEDICARE PPO [employer] CHOICE MEDICARE PPO [employer] MEDICARE HMO Care Teams Senior Security Engineer Relationship Specialty Start Date End Date Salinas Jackson MD [address] [place] [address] PCP - General Emergency Medicine 10/08/17
[2025-09-09 09:47] LABS: Alanine Aminotransferase 41 U/L (6-50); Albumin Level 4.7 g/dL (3.5-5.1); Alkaline Phosphatase 74 U/L (38-126); Anion Gap 8 mmol/L (4-12); Aspartate Amino Transferase 30 U/L (17-59); Bilirubin,Total 1.4 mg/dL (0.2-1.3); Blood Urea Nitrogen 15 mg/dL (9-20); Calcium 9.5 mg/dL (8.4-10.2); Carbon Dioxide 25 mmol/L (22-30); Chloride 105 mmol/L (98-107); Cholesterol 147 mg/dL (0-200); Estimated Glomerular Filt Rate > 60; Glucose 83 mg/dL (65-110); HDL Direct 46 mg/dL; Potassium 3.8 mmol/L (3.4-5.0); Sodium 138 mmol/L (137-145); Total Protein 7.6 g/dL (6.3-8.2); Triglycerides 108 mg/dL (<150)
== END 2025-09-09 08:17 | disposition home or self-care (01) ==
LOC: ANHLAB 08:18
PROVIDERS: PCP Emergency Medicine; Visit Provider Emergency Medicine
DX: E55.9 Vitamin D deficiency, unspecified (principal); E78.5 Hyperlipidemia, unspecified
CPT/HCPCS: 36415; 80053; 80061; 82306